=== PATIENT | female | born 1945 | race Caucasian/White ===

== ENCOUNTER → 2017-12-21 | Outpatient (CLI) | payer MEDICARE, OTHER ==
[~2017-12-21] MED LIST: ACTONEL; ASPI-757 PO; BENA20TA64 PO; CALC-649 PO; GLUC-198 PO; LEVO50TA86 PO; LORA-630 PO; MULT1CAP59 PO; OMEG-23 PO; PSYL0.4C2; TRIAMTERENE
--- NOTE | 2017-12-21 15:34 | RADIOLOGY IMAGING REPORT ---
FAC[place] [facility] [place]IENT NAME: ISAURA DE LEÓN : [id number] MR: [id number] V: [id number] EXAM DATE: ORDERING PHYSICIAN: CINDI SALINAS TECHNOLOGIST: Inga Sylvester PROCEDURE:BILATERAL DIGITAL SCREENING MAMMOGRAM WITH CAD ASSISTED INTERPRETATION & 3D TOMOSYNTHESIS COMPARISON:Prior mammograms 12/16/16, 12/16/15, 12/10/14, 12/30/13, 12/24/12, 12/23/11. INDICATIONS:SCREENING FINDINGS: Small amount of fibroglandular tissue is seen throughout the breasts. The parenchymal pattern has remained stable allowing for difference in mammographic technique & patient positioning. There is no evidence of malignant appearing mass, malignant appearing calcifications or other secondary sign of malignancy in either breast. DIAGNOSTIC CATEGORY 1--NEGATIVE. RECOMMENDATIONS: ROUTINE MAMMOGRAM AND CLINICAL EVALUATION. IMPRESSION: BIRADS 1: Negative. No significant abnormality is seen. Dictated by: Akua Selby M.D. on 12/21/2017 at 11:45 Transcribed by: ANGELY on 12/21/2017 at 13:10 Approved by: Akua Selby M.D. on 12/21/2017 at 15:32 [facility]
== END ==
LOC: MAMO 00:49
PROVIDERS: ATTEND Family Medicine
DX: Z12.31 Encounter for screening mammogram for malignant neoplasm of breast (principal)
CPT/HCPCS: 77063; 77067

== ENCOUNTER 2018-08-08 00:14 | Day surgery (SDC) | payer MEDICARE, OTHER ==
[~2018-08-08] VITALS: Ht 160 cm; Wt 55.3 kg
[~2018-08-08 00:14] MED LIST changes: +ACET-2708 PO; +ASPI-1471 PO; +CHOL10005 PO
[2018-08-08 07:25] VITALS: BP 157/73
[2018-08-08] MEDS ORDERED: LIDOCAINE/SOD BICARB 8.4% SYR ID ONE (07:25)
[2018-08-08] MEDS ORDERED: NORMOSOL R SOLN(*) 1000 ML BAG 1,000 ML IV PRN (07:25)
[2018-08-08] MEDS ORDERED: PROPOFOL EMUL(*) 10MG/ML 20 ML 60 ML ONE (08:19)
[2018-08-08 08:45] VITALS: BP 99/42
--- NOTE | 2018-08-08 08:59 | Short(Outpt) Discharge Summary ---
Discharge Summary Reason for Hosp/Final Diag: (1) History of colon polyps Status: Chronic Hospital Course & Plan: Colonoscopy with polypectomy x1 completed without problems. Departure Discharge to: Home, Self Care Discharge Instructions Home Meds Active Scripts Levothyroxine Sodium (LEVOTHYROXINE SODIUM) 50 Mcg Tablet, 1 TAB PO QDAY, #90 TAB 4 Refills Prov:KELSI GREENBERG MD 03/07/17 Reported Medications Acetaminophen/Diphenhydramine (ACETAMINOPHEN PM CAPLET) 1 Each Tablet, 0.5 EACH PO QHS, TAB 08/01/18 Cholecalciferol (Vitamin D3) (VITAMIN D3) 1,000 Unit Tablet, 2000 UNIT PO QDAY, TAB 08/01/18 Aspirin (ASPIR 81) 81 Mg Tablet.dr, 81 MG PO QAM, TAB 08/01/18 Multivitamin (MULTIVITAMINS) 1 Each Capsule, 1 EACH PO QDAY, CAPSULE 09/22/16 Psyllium Husk (Metamucil) Unknown Strength Capsule 09/22/16 Hayes-3 Fatty Acids/Fish Oil (FISH OIL 1,000 MG SOFTGEL) 1 Each Capsule, 1 EACH PO DAILY, CAPSULE 09/22/16 Benazepril Hcl (BENAZEPRIL HCL) 20 Mg Tab, 20 MG PO QDAY, TAB 09/22/16 Discontinued Reported Medications Calcium Carbonate/Vitamin D3 (CALCIUM 600 + VIT D 200 TABLET) 1 Each Tablet, 1 EACH PO QDAY 09/22/16 Aspirin (ASPIRIN) 325 Mg Tablet, 325 MG PO QDAY, TAB 09/22/16 Diet: Regular Activity: As Tolerated Special Instructions: Your colonoscopy was completed without any problems and your prep was excellent (Good Job!!). I removed a single small polyp from your rectum and it was sent to pathology. My office will call you in the next week or two to let you know what the polyp is and when your next colonoscopy should be (either 5 or 10 years) depending on pathology results. I also saw diverticuli in your sigmoid colon, the condition is called diverticulosis which is benign and occurs in up to 40% of people. I does not cause any problems in 90% of people with diverticuli but 10% can get an infection called diverticulitis. I recommend that you continue taking psyllium fiber, drink at least 8 12 ounce glasses of water every day, and include fruits and vegetable servings with every meal. TANNER LEMA MD August 08, 2018 08:59
[2018-08-08 09:30] VITALS: BP 126/95
[2018-08-08 09:38] VITALS: BP 149/74
[2018-08-08 09:40] VITALS: BP 156/81
--- NOTE | 2018-08-08 10:14 | NUR ---
0838 PT ARRIVED TO [place] VIA CART, SAFETY MAINTAINED, SBAR FROM Brigido BEAUCHAMP RN AD DR. BASSETT, ASSESSMENT UNREMARKABLE, PT RESTING, SISTER SEPTEMBER AT BEDSIDE 08 DR. LEMA AT BEDSIDE TO DISCUSS FINDINGS WITH PT'S SISTER 929 VSS, PT RESTING 0938 PT ALERT AND READY TO LEAVE, ORTHOSTATICS DONE, STABLE, VERY STEADY ON FEET 0945 IV OUT AND D/C INSTRUCTIONS COVERED, ALL QUESTIONS ANSWERED, 0953 OUT BY FOOT TO CAR OUTSIDE OF ADMITTING ENTRANCE, ALL BELONGINGS WITH PT
== END 2018-08-08 09:53 | disposition home or self-care (01) ==
LOC: OR 00:14
PROVIDERS: ATTEND Surgery
DX: Z12.11 Encounter for screening for malignant neoplasm of colon (principal); Z86.010 Personal history of colon polyps
CPT/HCPCS: 00811; 45385; 88305; J2704